=== PATIENT | female | born 1970 | race Two or more races ===

== ENCOUNTER 2020-08-15 10:34 | Emergency (ER) | payer MEDICAID ==
[~2020-08-15] VITALS: Ht 152.4 cm; Wt 66.0 kg
--- NOTE | 2020-08-15 10:50 | NUR ---
PT COMES IN C/O RIGHT/LEFT LOWER PELVIS ABD PAIN AND LEFT FLANK PAIN, N/V AND CHILLS, "HAVE MUCOUS AND BLOOD IN MY STOOL. YESTERDAY I HAD 5 AND TODAY TOO. I NOTICE WHEN THE PAIN STARTS THEN I HAVE TO GO TO THE BATHROOM AND THERES BLOOD" STARTING APPROX 3 DAYS AGO. PT STATES IT DOES NOT GET BETTER, ONLY WORSE. MONITORS CONNECTED. CALL LIGHT W/I REACH.
--- NOTE | 2020-08-15 11:31 | NUR ---
PROVIDER AT BEDSIDE FOR ASSESSMENT
[2020-08-15 11:49] LABS: BASOPHILS % (AUTO) 1 % (0-1); EOSINOPHILS % (AUTO) 1 % (1-7); LYMPHOCYTES % (AUTO) 32 % (22-44); MEAN CORPUSCULAR HEMOGLOBIN 31.5 pg (27.0-34.8); MEAN CORPUSCULAR HGB CONC 34.4 g/dL (32.4-35.8); MEAN PLATELET VOLUME 8.8 fL (7.4-10.4); MONOCYTES % (AUTO) 8 % (2-9); NEUTROPHILS % (AUTO) 57 % (42-75); PLATELET COUNT 271 x10^3/uL (130-400); RED BLOOD COUNT 4.23 x10^6/uL (3.82-5.3); RED CELL DISTRIBUTION WIDTH 13.4 % (9.6-15.2)
[2020-08-15 11:51] LABS: MD NO
[2020-08-15] MEDS ORDERED: ACETAMINOPHEN 500 MG TABLET PO ONE (12:00)
[2020-08-15 12:05] LABS: ALANINE AMINOTRANSFERASE 41 U/L (12-78); ALBUMIN 3.7 g/dL (3.4-5.0); ANION GAP 8 mmol/L (5-15); CALCIUM 9.2 mg/dL (8.5-10.1); CHLORIDE 112 mmol/L (98-107); CREATININE 0.78 mg/dL (0.55-1.02)
[2020-08-15 12:06] LABS: MICROSCOPIC INDICATED
[2020-08-15 12:07] LABS: ALKALINE PHOSPHATASE 73 U/L (45-117); BILIRUBIN,TOTAL 0.5 mg/dL (0.2-1.0); TOTAL PROTEIN 7.5 g/dL (6.4-8.2)
--- NOTE | 2020-08-15 12:24 | NUR ---
PT RESTING ON GURNEY W/DAUGHTER AT BEDSIDE. PLAN OF CARE DISCUSSED. PT STATES 5/10 BILATERAL PELVIC PAIN, DENIES NEED FOR PAIN MEDICATION INTERVENTION AT THIS TIME. VSS. NAD. CALL LIGHT W/IN REACH.
[2020-08-15] MEDS ORDERED: SODIUM CHLORIDE FLUSH 10ML SYR IVF ONE (12:30)
[2020-08-15] MEDS ORDERED: OMNIPAQUE 350 MG/ML, 100ML BOTTLE ONE (12:47)
--- NOTE | 2020-08-15 12:47 | NUR ---
PT DENIES DAILY HM MEDICATIONS. PREFERRED PHARMACY UPDATED. MED REC COMPLETE
[2020-08-15] MEDS ORDERED: ACETAMINOPHEN 500 MG TABLET ONE (13:00)
[2020-08-15 13:27] VITALS: BP 116/75
--- NOTE | 2020-08-15 13:28 | NUR ---
PT UP TO BEDSIDE TO GET DRESSED W/DAUGHTER ASSISTANCE. DISCHARGE INSTRUCTIONS EXPLAINED TO PT AND DAUGHTER. VSS.
--- NOTE | 2020-08-15 13:43 | NUR ---
PT AMBULATED TO DISCHARGE W/STEADY GAIT. PT ENCOURAGED TO FOLLOWUP DISCUSSED. PT EDUCATED TO RETURN TO THE ED W/WORSENING SYMPTOMS. RX GIVEN
== END 2020-08-15 13:46 | disposition home or self-care (01) ==
LOC: ED 11:22
DX: K92.2 Gastrointestinal hemorrhage, unspecified (principal); R10.30 Lower abdominal pain, unspecified; K92.1 Melena; R11.2 Nausea with vomiting, unspecified; R19.7 Diarrhea, unspecified; R42 Dizziness and giddiness
CPT/HCPCS: 36415; 74177; 80053; 81001; 85025; 87086; 99285; Q9967

== ENCOUNTER 2020-10-24 14:42 | Emergency (ER) | payer MEDICAID ==
[~2020-10-24] VITALS: Ht 152.4 cm; Wt 71.0 kg
[2020-10-24 14:54] VITALS: BP 126/85
--- NOTE | 2020-10-24 14:59 | NUR ---
TRIAGE: PT ARRIVES WITH BACK PAIN. HISTORY OF SAME INCLUDING BACK FUSION SURGERY.
[2020-10-24] MEDS ORDERED: KETOROLAC 30 MG/1 ML ONE (15:26)
[2020-10-24] MEDS ORDERED: METHOCARBAMOL 750 MG TABLET ONE (15:26)
[2020-10-24] MEDS ORDERED: KETOROLAC 30 MG/1 ML IM ONE (15:30)
[2020-10-24] MEDS ORDERED: METHOCARBAMOL 750 MG TABLET PO ONE (15:30)
== END 2020-10-24 16:34 | disposition home or self-care (01) ==
LOC: ED 16:28
DX: S39.012A Strain of muscle, fascia and tendon of lower back, initial encounter (principal); X58.XXXA Exposure to other specified factors, initial encounter; Y93.89 Activity, other specified; Y92.89 Other specified places as the place of occurrence of the external cause; Y99.8 Other external cause status
CPT/HCPCS: 72110; 96372; 99283; J1885